=== PATIENT | male | born 1945 | race Caucasian/White ===

== ENCOUNTER 2018-10-12 01:49 | Outpatient (CLI) | payer MEDICARE, BC ==
[2018-10-12 11:38] LABS: Hemoglobin 16.5 g/dL (14.0-18.0); Mean Corpuscular HGB CONC 34.9 g/dL (32.0-36.0); Mean Corpuscular Hemoglobin 34.9 pg (27.0-31.0); Mean Platelet Volume 7.5 fL (7.4-10.4); Platelet Count 217 thou/uL (130-400); RBC Distribution Width 12.3 % (11.5-14.5); Red Blood Cell (RBC) Count 4.73 mill/uL (4.70-6.10)
[2018-10-12 12:07] LABS: Anion Gap 16 mmol/L (10-20); Calcium 9.3 mg/dL (7.8-10.44); Carbon Dioxide 19 mmol/L (23-31); Chloride 105 mmol/L (98-107); Potassium 4.6 mmol/L (3.5-5.1); Sodium 135 mmol/L (136-145)
[2018-10-12 12:27] LABS: BUN (Urea Nitrogen) 16 mg/dL (8.4-25.7); Calc. Creatinine Clearance 0 mL/min (70-130); Estimated GFR-MDRD 67; Glucose 121 mg/dL (83-110)
--- NOTE | 2018-10-13 13:53 | EKG ---
Test Reason : Blood Pressure : / mmHG Vent. Rate : 055 BPM Atrial Rate : 055 BPM P-R Int : 140 ms QRS Dur : 098 ms QT Int : 460 ms P-R-T Axes : 043 007 038 degrees QTc Int : 440 ms Sinus bradycardia Otherwise normal ECG No previous ECGs available Confirmed by DR. Marichuy HUANG ([id number]) on 10/13/2018 1:53:33 PM Referred By: DI Confirmed By:DR. Marichuy HUANG
== END 2018-10-12 01:50 | disposition home or self-care (01) ==
LOC: LABBT 01:49
PROVIDERS: ATTEND Thoracic Surgery (Cardiothoracic Vascular Surgery)
DX: Z01.818 Encounter for other preprocedural examination (principal); I65.22 Occlusion and stenosis of left carotid artery
CPT/HCPCS: 80048; 85027; 93005; 93010

== ENCOUNTER 2018-10-12 10:15 | Inpatient (IN) | payer MEDICARE, BC ==
[2018-10-16] MEDS ORDERED: Nitroglycerin 50 MG/250 ML BOT 250 ML ONE (06:37)
[2018-10-16] MEDS ORDERED: Clindamycin/D5W 900 mg/50 ml Premix Bag ONE (06:37)
[2018-10-16] MEDS ORDERED: Fentanyl 100 MCG/2 ML VIAL ONE ×3 (06:38→09:53)
[2018-10-16] MEDS ORDERED: Phenylephrine HCL 10 MG/ML VIAL ONE (06:38)
[2018-10-16] MEDS ORDERED: Heparin 5,000 UNITS/ML VIAL ONE (06:45)
[2018-10-16] MEDS ORDERED: Protamine Sulfate 50 MG/5 ML VIAL ONE (06:45)
[2018-10-16] MEDS ORDERED: Midazolam HCl 2 mg/2 ml Vial ONE (07:39)
[2018-10-16] MEDS ORDERED: Bupivacaine/Epinephrine 0.25% 30 ML VIAL ONE (09:20)
[2018-10-16] MEDS ORDERED: Bupivacaine HCl 0.5%/Epinephrine 1:200,000/PF 30 ml Vial ONE (09:20)
[2018-10-16] MEDS ORDERED: hydrALAZINE 20 MG/ML VIAL ONE (09:55)
[2018-10-16 11:19] VITALS: BMI 30.7
[2018-10-16] MEDS ORDERED: Phenylephrine 10 MG/NS 250 ML 250 ML IVPB PRN (11:48)
[2018-10-16] MEDS ORDERED: hydrALAZINE 20 MG/ML VIAL SLOW IVP PRN (11:48)
[2018-10-16] MEDS ORDERED: Ondansetron PF 4 MG/2 ML Vial IVP PRN (11:48)
[2018-10-16] MEDS ORDERED: Nitroglycerin 50 MG/250 ML BOT 250 ML IVPB PRN (11:48)
[2018-10-16] MEDS ORDERED: Acetaminophen 325 MG TAB PO PRN (11:48)
[2018-10-16] MEDS ORDERED: Promethazine HCl 25 MG/ML VIAL IM PRN (11:48)
[2018-10-16] MEDS ORDERED: HYDROcodone/Acetaminophen 5/325 mg Tablet PO PRN ×2 (11:48)
[2018-10-16] MEDS ORDERED: Rocuronium Bromide 10 MG/ML (10ML VIAL) ONE (12:50)
[2018-10-16] MEDS ORDERED: Succinylcholine Chloride 20 MG/ML 10 ml SYRINGE FS ONE (12:50)
[2018-10-16] MEDS ORDERED: Lidocaine 1% PF 5 ML VIAL ONE (12:50)
[2018-10-16] MEDS ORDERED: Heparin 10,000 UNITS/ 10 ML VIAL ONE (12:50)
[2018-10-16] MEDS ORDERED: Glycopyrrolate 0.2 MG/ML 5 ML SYRINGE ONE (12:50)
[2018-10-16] MEDS ORDERED: PROPOFOL 200 MG/20 ML VIAL ONE (12:50)
[2018-10-16] MEDS ORDERED: Chloraseptic Spray 180 ml Bottle PO PRN (13:04)
[2018-10-16] MEDS: Sodium Chloride 0.9% 1,000 ML IV SCH ×2 (13:16→21:29)
--- NOTE | 2018-10-16 13:18 | OP ---
DATE OF PROCEDURE: 10/16/2018 PREOPERATIVE DIAGNOSIS: Asymptomatic left carotid stenosis. POSTOPERATIVE DIAGNOSIS: Asymptomatic left carotid stenosis. PROCEDURE PERFORMED: Left carotid endarterectomy with patch angioplasty. ANESTHESIA: General endotracheal. ESTIMATED BLOOD LOSS: Less than 100. DRAINS: None. SPECIMENS: None. DESCRIPTION OF PROCEDURE: After consent was obtained, the patient was brought to the operating room and placed in supine position on operating table. Appropriate central line was placed, and general endotracheal anesthesia was induced. A left radial arterial line was placed for blood pressure monitoring. Head was rotated, the right neck extended. Joints were properly supported. Left neck was prepped and draped in usual sterile fashion. Skin incision was made along the anterior border of the sternocleidomastoid. Platysma was incised with electrocautery. Sternocleidomastoid was mobilized and the carotid sheath entered. Common, internal, and external carotid arteries were carefully dissected free of surrounding tissues. Hypoglossal and vagus nerves were noted and protected throughout the procedure. The patient was systemically heparinized. After 3 minutes, internal, common, and external carotid arteries were serially clamped. Incision was made on the common carotid artery extended through the bulb distal to the plaque on the internal carotid artery. A 10-[place] shunt was placed and antegrade flow reestablished. Endarterectomy was begun on the common carotid artery. A medial plane was developed. This was dissected distally. An eversion endarterectomy was performed of the external carotid artery. Good tapered distal endpoint was obtained. Medial fibers were debrided. Artery was flushed with heparinized saline. Bovine pericardial patch was sewn in place with a running 6-0 Prolene suture. Prior to completion of patch suture line, shunt was clamped and removed. Arteries were back bled and flushed with heparinized saline. Patch suture line was completed. Antegrade flow was reestablished up the external carotid artery for 10 seconds, followed by the internal carotid artery. Protamine was administered. Hemostasis was ensured. The wound was infiltrated with 0.5% Marcaine with epinephrine. The wounds were then closed in layers and Dermabond applied to the skin. The patient was awakened and neurologically intact at completion of the procedure. The patient was transferred to the recovery room in stable condition. Job ID: [id number]
[2018-10-16] MEDS: Clindamycin/D5W 900 MG in Premix Bag 1 BAG IVPB SCH ×2 (13:26→17:01)
[2018-10-16] MEDS ORDERED: Non-Formulary Item 1 EACH (Vit D3-Vit K/Berberine/Hops [Ostera Tablet] 1 TAB) PO SCH (21:00)
[2018-10-16] MEDS ORDERED: FOLIC AC PO SCH (21:00)
[2018-10-16] MEDS ORDERED: CALCIUM CARB PO SCH (21:00)
[2018-10-16] MEDS ORDERED: [UNRECOGNIZED DRUG - REMARK] PO SCH (21:00)
[2018-10-16] MEDS ORDERED: Rosuvastatin 20 MG TAB PO SCH (21:00)
[2018-10-16] MEDS ORDERED: MAG CARB PO SCH (21:00)
[2018-10-17] MEDS: Clindamycin/D5W 900 MG in Premix Bag 1 BAG IVPB SCH ×2 (00:20→06:05)
[2018-10-17 07:18] VITALS: TEMP 98
[2018-10-17] MEDS: Sodium Chloride 0.9% 1,000 ML IV SCH (07:19)
--- NOTE | 2018-10-17 07:20 | DIS ---
DATE OF ADMISSION: 10/16/2018 DATE OF DISCHARGE: 10/17/2018 DIAGNOSIS: Asymptomatic left carotid stenosis. PROCEDURE: Left carotid endarterectomy and patch angioplasty. DESCRIPTION OF HOSPITAL STAY: Mr. Trivedi was brought in for elective carotid endarterectomy. He has done well. He is neurologically intact postoperatively and being discharged to home today with no medicine changes. Job ID: [id number]
[2018-10-17] MEDS ORDERED: Aspirin 325 MG TAB PO SCH (09:00)
[2018-10-17] MEDS ORDERED: Docusate 100 MG CAP PO PRN (21:00)
== END 2018-10-17 10:00 | disposition home or self-care (01) | DRG 39 ==
LOC: SURG A 10-16 06:15 → CCU 10-16 11:52
PROVIDERS: ADMIT Thoracic Surgery (Cardiothoracic Vascular Surgery); ATTEND Thoracic Surgery (Cardiothoracic Vascular Surgery)
PROC: 03CJ0ZZ Extirpation of Matter from Left Common Carotid Artery, Open Approach (ICD-10-PCS; principal; 2018-10-16)
PROC: 03UJ0KZ Supplement Left Common Carotid Artery with Nonautologous Tissue Substitute, Open Approach (ICD-10-PCS; 2018-10-16)
DX: I65.22 Occlusion and stenosis of left carotid artery (principal); Z88.0 Allergy status to penicillin; Z88.2 Allergy status to sulfonamides
CPT/HCPCS: 94640; J0360; J0670; J1642; J1644; J2001; J2250; J2370; J2704; J2720; J3010; J3490; J7620